=== PATIENT | female | born 1955 | race Hispanic/Latino ===

== ENCOUNTER 2018-10-01 05:52 | Day surgery (SDC) | payer OTHER ==
[2018-10-01] MEDS: NACL 0.9% 500 ML 500 ML IV SCH ×3 (07:45→13:42)
[2018-10-01] MEDS ORDERED: ECOTRIN PO ONE (08:00)
[2018-10-01] MEDS ORDERED: HEPARIN/NS 5000 UNIT/500ML(CATH LAB) 1,000 ML IR ONE (08:18)
[2018-10-01] MEDS: VERSED ONE ×3 (08:37→09:29)
[2018-10-01] MEDS: SUBLIMAZE ONE ×3 (08:37→09:29)
[2018-10-01] MEDS: XYLOCAINE 2% INFILTRATI ONE ×2 (08:37→08:59)
[2018-10-01] MEDS: HEPARIN 10,000 UNITS/10 ML ONE ×3 (08:38→09:21)
[2018-10-01] MEDS: CALAN ONE ×2 (08:38→09:01)
[2018-10-01] MEDS ORDERED: HEPARIN/NS 5000 UNIT/500ML(CATH LAB) 500 ML IR ONE (09:25)
[2018-10-01] MEDS ORDERED: HEPARIN 10,000 UNITS/10 ML ONE (10:02)
[2018-10-01] MEDS ORDERED: BRILINTA ONE (10:03)
[2018-10-01] MEDS ORDERED: ALUM-MAG HYDROX-SIMETH 200-200-20MG/5ML ONE (10:03)
[2018-10-01] MEDS ORDERED: THALITONE PO PRN ×2 (12:10→13:00)
--- NOTE | 2018-10-01 12:13 | Short Stay Summary ---
Short Stay Documentation Date of service: 10/01/18 - History H&P: obtained from office - Allergies and Medications Current Medications: Allergies No Known Allergies Allergy (Verified 10/01/18 07:39) Home Medications Medication Instructions Recorded Confirmed Last Taken Type Aspirin 325 mg PO QDAY 10/01/18 10/01/18 09/30/18 History Atorvastatin [Lipitor] 40 mg PO DAILY 10/01/18 10/01/18 09/30/18 History 40mg Carvedilol [Coreg] 25 mg PO BID 10/01/18 10/01/18 09/30/18 History 25mg Chlorthalidone [Thalitone] 25 mg PO PRN PRN 10/01/18 10/01/18 09/25/18 History 25mg Fenofibrate 160 mg PO DAILY 10/01/18 10/01/18 09/30/18 History 160mg Fluticasone [Flonase] 1 spray INTRANASAL DAILY 10/01/18 10/01/18 09/30/18 History 1 spray Loratadine [Claritin] 10 mg PO DAILY 10/01/18 10/01/18 09/30/18 History 10mg Losartan [Cozaar] 50 mg PO DAILY 10/01/18 10/01/18 09/30/18 History 50mg Metformin HCl [metFORMIN] 1,000 mg PO BID 10/01/18 10/01/18 09/30/18 History 1000mg NIFEdipine XL [Procardia Xl] 90 mg PO DAILY 10/01/18 10/01/18 09/30/18 History 90mg Omeprazole 20 mg PO DAILY 10/01/18 10/01/18 09/30/18 History 20mg hydroCHLOROthiazide [HCTZ] 12.5 mg PO DAILY 10/01/18 10/01/18 09/30/18 History 12.5mg Active Medications Aspirin (Baby Aspirin) 81 mg PO QDAY IDANIA Atorvastatin Calcium (Lipitor) 40 mg PO DAILY IDANIA Carvedilol (Coreg) 25 mg PO BID IDANIA Chlorthalidone (Thalitone) 25 mg PO PRN PRN PRN Reason: Blood Pressure Fluticasone Propionate (Flonase) mcg NS DAILY IDANIA Hydrochlorothiazide (Hctz) 12.5 mg PO DAILY IDANIA Sodium Chloride (Nacl 0.9% 500 Ml) 500 mls @ 50 mls/hr IV DIRECT IDANIA Stop: 10/01/18 17:29 Last Admin: 10/01/18 09:26 Dose: 50 mls/hr Documented by: Loratadine (Claritin) 10 mg PO DAILY IDANIA Losartan Potassium (Cozaar) 50 mg PO DAILY IDANIA Miscellaneous Medication (Fenofibrate [Fenofibrate]) 160 mg PO DAILY IDANIA Miscellaneous Medication (Metformin Hcl [Metformin]) 1,000 mg PO BID IDANIA Miscellaneous Medication (Omeprazole [Omeprazole]) 20 mg PO DAILY IDANIA Nifedipine (Procardia Xl) 90 mg PO DAILY IDANIA Ticagrelor (Brilinta) 90 mg PO BID IDANIA - Brief post op/procedure progress note Date of procedure: 10/01/18 Pre-op diagnosis: chest pain Post-op diagnosis: other (CAD) Procedure: C with PCI - see dictated cath report Anesthesia: local Estimated blood loss: none Condition: stable - Disposition Condition at discharge: Good Disposition: [id number]-01 TO HOME OR SELFCARE - Discharge Diagnoses (1) CAD (coronary artery disease) Status: Chronic (2) Stented coronary artery Status: Chronic (3) HTN (hypertension) Status: Chronic (4) Hyperlipidemia Status: Chronic (5) Diabetes Status: Chronic Short Stay Discharge Plan Activity: advance as tolerated Diet: low fat, low cholesterol, low salt, diabetic Wound: open to air, keep clean and dry, per your surgeon's advice Follow up with: HIRAL ALCALA NP-C [Primary Care Provider] - 7 Days CAMPOS CARRANZA MD [Staff Physician] - 7 Days ([facility], 10/23/2018 @ 1:30PM) Prescriptions: RX: Ticagrelor [Brilinta] 90 mg PO BID #60 tablet
[2018-10-01] MEDS ORDERED: COREG PO SCH (15:00)
--- NOTE | 2018-10-01 15:41 | Cardiac Catherization Report ---
CATHETERIZATION REPORT AND CORONARY INTERVENTIONAL REPORT INDICATION FOR PROCEDURE: The patient is a 63-year-old white female being followed in our office by Dr. Bree Martin on a regular basis, who was having atypical chest pains and elevated blood pressure. The patient recently underwent stress nuclear imaging, which showed probable lateral ischemia along with continuous symptoms of chest pain in spite of appropriate dose of beta satish, namely carvedilol 25 mg b.i.d. and also Procardia-XL 90 mg. The patient is also on aspirin and statin. She gets chest pain and shortness of breath on exertion. Hence, she is scheduled for cardiac catheterization and possible intervention. The patient and are aware of the procedure, potential complications and alternatives of therapy available. DESCRIPTION OF PROCEDURE: The patient was brought to the catheterization laboratory in a fasting condition. The patient was evaluated for moderate sedation. The patient was prepared in standard fashion with sterile drapes. The patient was sedated with IV Versed and fentanyl starting at 8:54 a.m. Subsequently, right wrist area and forearm thoroughly cleansed with Betadine solution, sterile drapes were applied. Local anesthesia was given and right radial artery puncture was made using 21-gauge arterial puncture needle. Subsequently, 5-Tunisian slender sheath was used. A 5-Tunisian multipurpose catheter was advanced into the LV under fluoroscopy and left ventriculogram was performed using hand injection. Subsequently, this catheter was exchanged with TIG catheter and angiograms of the right coronary artery were obtained. It is to be noted that there is marked tortuosity of the subclavian and innominate vessel making manipulation difficult. A JL3.5 diagnostic catheter was used to engage the left coronary artery and multiple angiograms were obtained in different views. At the end of the procedure, it was felt that patient would benefit from intervention of the distal circumflex lesion, hence procedure was converted into the interventional procedure. Diagnostic catheterization findings are as follows: Aortic pressure 157/69. 1. Left ventriculogram done in RICE projection showed normal size left ventricle with normal contractility. Ejection fraction 55%. Mitral regurgitation could not be evaluated because of limited amount of dye injected. 2. Right coronary artery dominant vessel shows very smooth 20% lesion in the proximal PDA. Otherwise, rest of the vessel which is used without significant disease. 3. Left coronary artery arises normally from left coronary cusp. Left main is short, immediately dividing into LAD and circumflex branches. LAD shows LAD which is a small caliber vessel not reaching the apex shows diffuse mild irregularities with 30% smooth proximal lesion. Overall, no obstructing lesions were noted in the LAD and diagonal branches. Circumflex artery shows 40% smooth lesion in the mid part prior to ____ anterolateral branch. Subsequently in the distal circumflex artery, there is 75% eccentric lesion. This being a very large distal marginal branch. Collaterals none. It was felt the distal circumflex artery is hemodynamically significant. FINAL IMPRESSION: 1. Normal sized left ventricle with normal contractility. 2. Dominant RCA showing only mild disease. Similarly, left main and LAD showing mild disease. Moderate 40% lesion noted in the mid circumflex; however, there is an eccentric 75% ____ circumflex lesion. PLAN: At this time is to intervene on this lesion considering the severity and symptoms and abnormal nuclear imaging. CORONARY INTERVENTION OF THE DISTAL CIRCUMFLEX VESSEL: The patient is having anginal symptoms in spite of appropriate medical therapy with appropriate dose of beta satish and calcium channel satish. Noted to have mild lateral wall ischemia. Considering the above symptoms and objective findings, it was decided to proceed with coronary intervention. The patient has indwelling 5-Tunisian sheath in the right radial artery, which can accommodate 6-Tunisian guiding catheter. Initially 6-Tunisian EBU 3.5 guiding catheter was used, but it cannot engage the LCA well, hence a 6-Tunisian JL3.5 guiding catheter was used to engage the left coronary artery. A 0.014 inch Holbrook XT guidewire was advanced into the distal circumflex artery without difficulty. Lesion in the distal circumflex which is focal was dilated with 2.75 x 12 mm balloon, which is associated with ST elevations. However, good result was obtained. Subsequently, 3.0 x 15 mm Xience Iesha stent was advanced and placed in the distal circumflex artery with very good result. No complications were noted. An attempt was made to do IVUS of the circumflex artery. However because of the technical difficulty and guidewire prolapsing into the aorta, intravascular ultrasound was not performed. Final diagnostic angiograms were obtained using diagnostic JL3.5 catheter. This showed a widely patent stent with no proximal or distal dissection. No distal embolization noted. No suggestion of perforation noted. FLORY 3 flow was noted pre and post-procedure. Lesion was reduced from 75% to 0%. The patient tolerated the procedure well without any hemodynamic changes or arrhythmia. The patient was given heparin as anticoagulant and was given Brilinta as the antiplatelet agent. FINAL IMPRESSION: Uncomplicated drug-eluting stent placement of the distal circumflex artery with very good result. No complications noted. Hemostasis will be obtained with radial band. The patient will be monitored for next 8 hours as an outpatient. If stable, may be discharged home as an outpatient. If not, he will be admitted. At the end of the procedure, the patient is stable. The patient received IV sedation and monitored throughout the procedure with a pulse oximetry, EKG monitoring and hemodynamic monitoring. Sedation monitoring ended at 9:53 a.m. The patient at the end of procedure is communicating normally, moving all the extremities, breathing normally. No untoward side effects noted. Moderate sedation. Findings were explained to the patient and her . They understand. JOB# [id number] YESSI/SONIA
[2018-10-01 16:30] VITALS: BP 143/85
[2018-10-01] MEDS ORDERED: GLUCOPHAGE PO SCH (17:00)
[2018-10-01] MEDS ORDERED: BRILINTA PO SCH (22:00)
[2018-10-02] MEDS ORDERED: NON-FORMULARY (Fenofibrate [Fenofibrate] 160 MG) PO SCH (10:00)
[2018-10-02] MEDS ORDERED: COZAAR PO SCH (10:00)
[2018-10-02] MEDS ORDERED: BABY ASPIRIN PO SCH (10:00)
[2018-10-02] MEDS ORDERED: FLONASE NS SCH (10:00)
[2018-10-02] MEDS ORDERED: PROCARDIA XL PO SCH (10:00)
[2018-10-02] MEDS ORDERED: NON-FORMULARY (Omeprazole [Omeprazole] 20 MG) PO SCH (10:00)
[2018-10-02] MEDS ORDERED: PROTONIX PO SCH (10:00)
[2018-10-02] MEDS ORDERED: CLARITIN PO SCH (10:00)
[2018-10-02] MEDS ORDERED: HCTZ PO SCH (10:00)
== END 2018-10-01 17:41 | disposition home or self-care (01) ==
LOC: CATHLABREC 05:52
PROVIDERS: ATTEND Internal Medicine
DX: I25.10 Atherosclerotic heart disease of native coronary artery without angina pectoris (principal); I10 Essential (primary) hypertension; E78.5 Hyperlipidemia, unspecified; E11.9 Type 2 diabetes mellitus without complications; K21.9 Gastro-esophageal reflux disease without esophagitis; Z79.899 Other long term (current) drug therapy; Z79.82 Long term (current) use of aspirin; Z79.84 Long term (current) use of oral hypoglycemic drugs; Z95.5 Presence of coronary angioplasty implant and graft; E78.00 Pure hypercholesterolemia, unspecified; Z90.710 Acquired absence of both cervix and uterus; Z98.890 Other specified postprocedural states
CPT/HCPCS: 82962; 85347; 93005; 93010; 93458; 99156; 99157; C1725; C1769; C1874; C1887; C1894; C9600; J1644; J2250; J3010; J7040; 92928; Q9967

== ENCOUNTER 2018-10-06 06:00 | Observation (INO) | payer OTHER ==
--- NOTE | 2018-10-06 06:43 | XRay Report ---
CHEST 1 VIEW INDICATION / CLINICAL INFORMATION: Chest Pain. COMPARISON: None available. FINDINGS: SUPPORT DEVICES: None. HEART / MEDIASTINUM: No significant abnormality. LUNGS / PLEURA: No significant pulmonary or pleural abnormality. No pneumothorax. ADDITIONAL FINDINGS: No significant additional findings. IMPRESSION: No acute pulmonary or pleural abnormality. Signer Name: Coery Elmore MD FACR Signed: 10/06/2018 6:38 AM Workstation Name: [id number]
[2018-10-06 07:15] LABS: Basophils # (Auto) 0.1 K/mm3 (0.0-0.1); Basophils % (Auto) 1.1 % (0.0-1.8); Eosinophils # (Auto) 0.1 K/mm3 (0.0-0.4); Eosinophils % (Auto) 2.1 % (0.0-4.3); Hematocrit 37.5 % (30.3-42.9); Hemoglobin 12.5 gm/dl (10.1-14.3); Lymphocytes % (Auto) 13.8 % (13.4-35.0); Mean Corpuscular HGB Conc 33 % (30-34); Mean Corpuscular Volume 82 fl (79-97); Monocytes # (Auto) 0.4 K/mm3 (0.0-0.8); Monocytes % (Auto) 5.6 % (0.0-7.3); Platelet Count 372 K/mm3 (140-440); Red Blood Count 4.58 M/mm3 (3.65-5.03); Red Cell Distribution Width 15.3 % (13.2-15.2)
[2018-10-06 07:26] LABS: BUN/Creatinine Ratio 25; Blood Urea Nitrogen 20 mg/dL (7-17); Calcium 9.7 mg/dL (8.4-10.2); Hemolysis Index 42
[2018-10-06 07:54] LABS: Chol/HDL Ratio 4.74 %; HDL Cholesterol 31 mg/dL (40-59); LDL Cholesterol,Direct 101 mg/dL (50-130)
--- NOTE | 2018-10-06 09:30 | Emergency Department Report ---
ED General Adult HPI - General Chief complaint: Dyspnea/Respdistress Stated complaint: SHORT OF BREATH Time Seen by Provider: 10/06/18 08:44 Source: patient, RN notes reviewed, old records reviewed Mode of arrival: Ambulatory Limitations: No Limitations - History of Present Illness Initial comments: Primary care DrMiguel: Cardiology: Dr Martin Past medical history: Hypertension, heart disease, high cholesterol This is a pleasant 63-year-old female. The patient is not known to this provider previously. She had a drug-eluting stent placed at this hospital 5 days ago by cardiology. She is taking aspirin and brilinta She presents to the ER today with a complaint of nontraumatic shortness of breath, new over the past 2-3 days, associated with 2-3 pillow orthopnea, which is new for her. She denies DVT, pulmonary embolus risk factors. She also has chronic left-sided chest pain which is associated with nontraumatic back pain. There is aspirin use, there is no diaphoresis, there is no vomiting, and the patient denies additional complaints. She snores at night, and endorses sensation of incomplete sleep after getting up. She is scheduled for a sleep study next month. However, she endorses an acute change in her exertional capacity within the past 2-3 days. -: days(s) Location: chest, back Radiation: non-radiation Severity scale (0 -10): 4 Quality: aching Consistency: intermittent Improves with: none Worsens with: none Associated Symptoms: chest pain, shortness of breath - Related Data Home Medications Medication Instructions Recorded Confirmed Last Taken Atorvastatin [Lipitor] 40 mg PO DAILY 10/01/18 10/06/18 09/30/18 40mg Carvedilol [Coreg] 25 mg PO BID 10/01/18 10/06/18 09/30/18 25mg Chlorthalidone [Thalitone] 25 mg PO PRN PRN 10/01/18 10/06/18 09/25/18 25mg Fenofibrate 160 mg PO DAILY 10/01/18 10/06/18 09/30/18 160mg Fluticasone [Flonase] 1 spray INTRANASAL DAILY 10/01/18 10/06/18 09/30/18 1 spray Loratadine [Claritin] 10 mg PO DAILY 10/01/18 10/06/18 09/30/18 10mg Losartan [Cozaar] 100 mg PO DAILY 10/01/18 10/06/18 09/30/18 50mg Metformin HCl [metFORMIN] 1,000 mg PO BID 10/01/18 10/06/18 09/30/18 1000mg NIFEdipine XL [Procardia Xl] 90 mg PO DAILY 10/01/18 10/06/18 09/30/18 90mg Omeprazole 20 mg PO DAILY 10/01/18 10/06/18 09/30/18 20mg hydroCHLOROthiazide [HCTZ] 12.5 mg PO DAILY 10/01/18 10/06/18 09/30/18 12.5mg Previous Rx's Medication Instructions Recorded Last Taken Type Aspirin [Aspirin BABY CHEW TAB] 81 mg PO QDAY tab.chew 10/01/18 Unknown Rx Ticagrelor [Brilinta] 90 mg PO BID #60 tablet 10/01/18 Unknown Rx Allergies Allergy/AdvReac Type Severity Reaction Status Date / Time No Known Allergies Allergy Verified 10/01/18 07:39 ED Review of Systems ROS: Stated complaint: SHORT OF BREATH Other details as noted in HPI Comment: All other systems reviewed and negative Respiratory: shortness of breath Cardiovascular: chest pain ED Past Medical Hx - Past Medical History Previous Medical History?: Yes Hx Hypertension: Yes Hx Diabetes: Yes Hx GERD: Yes - Surgical History Past Surgical History?: Yes Hx Coronary Stent: Yes (x1) Additional Surgical History: x1. hyster - Social History Smoking Status: Never Smoker Substance Use Type: None - Medications Home Medications: Home Medications Medication Instructions Recorded Confirmed Last Taken Type Aspirin [Aspirin BABY CHEW TAB] 81 mg PO QDAY tab.chew 10/01/18 10/06/18 Unknown Rx Atorvastatin [Lipitor] 40 mg PO DAILY 10/01/18 10/06/18 09/30/18 History 40mg Carvedilol [Coreg] 25 mg PO BID 10/01/18 10/06/18 09/30/18 History 25mg Chlorthalidone [Thalitone] 25 mg PO PRN PRN 10/01/18 10/06/18 09/25/18 History 25mg Fenofibrate 160 mg PO DAILY 10/01/18 10/06/18 09/30/18 History 160mg Fluticasone [Flonase] 1 spray INTRANASAL DAILY 10/01/18 10/06/18 09/30/18 History 1 spray Loratadine [Claritin] 10 mg PO DAILY 10/01/18 10/06/18 09/30/18 History 10mg Losartan [Cozaar] 100 mg PO DAILY 10/01/18 10/06/18 09/30/18 History 50mg Metformin HCl [metFORMIN] 1,000 mg PO BID 10/01/18 10/06/18 09/30/18 History 1000mg NIFEdipine XL [Procardia Xl] 90 mg PO DAILY 10/01/18 10/06/18 09/30/18 History 90mg Omeprazole 20 mg PO DAILY 10/01/18 10/06/18 09/30/18 History 20mg Ticagrelor [Brilinta] 90 mg PO BID #60 tablet 10/01/18 10/06/18 Unknown Rx hydroCHLOROthiazide [HCTZ] 12.5 mg PO DAILY 10/01/18 10/06/18 09/30/18 History 12.5mg ED Physical Exam - General Limitations: No Limitations General appearance: alert, in no apparent distress - Head Head exam: Present: atraumatic, normocephalic - Eye Eye exam: Present: normal appearance, EOMI. Absent: nystagmus - ENT ENT exam: Present: normal exam, normal orophraynx, mucous membranes moist, normal external ear exam - Neck Neck exam: Present: normal inspection, full ROM. Absent: tenderness, meningismus - Respiratory Respiratory exam: Present: normal lung sounds bilaterally. Absent: respiratory distress, chest wall tenderness - Cardiovascular Cardiovascular Exam: Present: regular rate, normal rhythm, normal heart sounds. Absent: bradycardia, tachycardia, irregular rhythm, systolic murmur, diastolic murmur, rubs, gallop - GI/Abdominal GI/Abdominal exam: Present: soft. Absent: distended, tenderness, guarding, rebound, rigid, pulsatile mass - Extremities Exam Extremities exam: Present: normal inspection, full ROM, other (2+ pulses noted in the bilateral upper, lower extremities. Compartments soft. No long bony tenderness. The pelvis is stable.). Absent: pedal edema, joint swelling, calf tenderness - Back Exam Back exam: Present: normal inspection, full ROM. Absent: tenderness, CVA tenderness (R), CVA tenderness (L), paraspinal tenderness, vertebral tenderness - Neurological Exam Neurological exam: Present: alert, oriented X3, other (Extraocular movements intact. Tongue midline. No facial droop. Facial sensation intact to light touch in the V1, V2, V3 distribution bilaterally. 5 and 5 strength in 4 extremities.. Sensation is intact to light touch in 4 extremities.). Absent: motor sensory deficit - Psychiatric Psychiatric exam: Present: normal affect, normal mood - Skin Skin exam: Present: warm, dry, intact, normal color. Absent: rash ED Course Vital Signs 10/06/18 10/06/18 10/06/18 06:05 06:40 06:45 Temperature 97.9 F Pulse Rate 74 71 Respiratory 16 19 Rate Blood Pressure 128/73 123/72 O2 Sat by Pulse 98 97 96 Oximetry 10/06/18 10/06/18 10/06/18 07:00 07:04 07:16 Temperature Pulse Rate 72 70 Respiratory 19 18 20 Rate Blood Pressure 130/69 130/69 O2 Sat by Pulse 96 97 98 Oximetry 10/06/18 10/06/18 10/06/18 07:30 07:46 08:00 Temperature Pulse Rate 71 70 70 Respiratory 18 18 20 Rate Blood Pressure 123/71 123/71 120/73 O2 Sat by Pulse 99 98 98 Oximetry 10/06/18 10/06/18 10/06/18 08:54 09:00 10:00 Temperature Pulse Rate 70 73 Respiratory 20 21 17 Rate Blood Pressure 111/68 125/70 O2 Sat by Pulse 99 97 97 Oximetry 10/06/18 11:00 Temperature Pulse Rate 74 Respiratory 17 Rate Blood Pressure 146/82 O2 Sat by Pulse 99 Oximetry ED Medical Decision Making - Lab Data Result diagrams: 10/06/18 07:00 10/06/18 07:00 Vital Signs 10/06/18 10/06/18 10/06/18 06:05 06:40 06:45 Temperature 97.9 F Pulse Rate 74 71 Respiratory 16 19 Rate Blood Pressure 128/73 123/72 O2 Sat by Pulse 98 97 96 Oximetry 10/06/18 10/06/18 10/06/18 07:00 07:04 07:16 Temperature Pulse Rate 72 70 Respiratory 19 18 20 Rate Blood Pressure 130/69 130/69 O2 Sat by Pulse 96 97 98 Oximetry 10/06/18 10/06/18 10/06/18 07:30 07:46 08:00 Temperature Pulse Rate 71 70 70 Respiratory 18 18 20 Rate Blood Pressure 123/71 123/71 120/73 O2 Sat by Pulse 99 98 98 Oximetry 10/06/18 08:54 Temperature Pulse Rate Respiratory 20 Rate Blood Pressure O2 Sat by Pulse 99 Oximetry Lab Results 10/06/18 10/06/18 10/06/18 Range/Units 07:00 07:00 07:00 WBC 7.0 (4.5-11.0) K/mm3 RBC 4.58 (3.65-5.03) M/mm3 Hgb 12.5 (10.1-14.3) gm/dl Hct 37.5 (30.3-42.9) % MCV 82 (79-97) fl MCH 27 L (28-32) pg MCHC 33 (30-34) % RDW 15.3 H (13.2-15.2) % Plt Count 372 (140-440) K/mm3 Lymph % (Auto) 13.8 (13.4-35.0) % [place] % (Auto) 5.6 (0.0-7.3) % Eos % (Auto) 2.1 (0.0-4.3) % Baso % (Auto) 1.1 (0.0-1.8) % Lymph # 1.0 L (1.2-5.4) K/mm3 [place] # 0.4 (0.0-0.8) K/mm3 Eos # 0.1 (0.0-0.4) K/mm3 Baso # 0.1 (0.0-0.1) K/mm3 Seg Neutrophils % 77.4 H (40.0-70.0) % Seg Neutrophils # 5.4 (1.8-7.7) K/mm3 D-Dimer 192.57 (0-234) ng/mlDDU Sodium 132 L (137-145) mmol/L Potassium 4.6 (3.6-5.0) mmol/L Chloride 98.5 (98-107) mmol/L Carbon Dioxide 20 L (22-30) mmol/L Anion Gap 18 mmol/L BUN 20 H (7-17) mg/dL Creatinine 0.8 (0.7-1.2) mg/dL Estimated GFR > 60 ml/min BUN/Creatinine Ratio 25 % Glucose 303 H (65-100) mg/dL Calcium 9.7 (8.4-10.2) mg/dL Troponin T 0.051 H (0.00-0.029) ng/mL Triglycerides 203 H (2-149) mg/dL Cholesterol 147 (50-199) mg/dL LDL Cholesterol Direct 101 (50-130) mg/dL HDL Cholesterol 31 L (40-59) mg/dL Cholesterol/HDL Ratio 4.74 % - EKG Data -: EKG Interpreted by Me Rate: normal - Radiology Data Radiology results: report reviewed, image reviewed Print Report Referring Physician: VIRIDIANA NORMAN Patient Name: RAMON TEAGUE Date of : 1955 Sex: Female Report Date: 2018-10-06 Report Status: Finalized Findings [facility] [address] [place] [address] XRay Report Signed Patient: RAMON TEAGUE MR#: [id number] : 1955 Acct:[id number] Age/Sex: 63 / F ADM Date: 10/06/18 Loc: ED Attending Dr: Ordering Physician: VIRIDIANA NORMAN MD Date of Service: 10/06/18 Procedure(s): XR chest 1V ap Accession Number(s): [id number] cc: VIRIDIANA NORMAN MD Fluoro Time In Minutes: CHEST 1 VIEW INDICATION / CLINICAL INFORMATION: Chest Pain. COMPARISON: None available. FINDINGS: SUPPORT DEVICES: None. HEART / MEDIASTINUM: No significant abnormality. LUNGS / PLEURA: No significant pulmonary or pleural abnormality. No pneumothorax. ADDITIONAL FINDINGS: No significant additional findings. IMPRESSION: No acute pulmonary or pleural abnormality. Signer Name: Corey Elmore MD FACR Signed: 10/06/2018 6:38 AM Workstation Name: [id number] Transcribed By: MS Dictated By: Corey Elmore MD Electronically Authenticated By: Corey Elmore MD Signed Date/Time: 10/06/18 0638 - Medical Decision Making Differential diagnosis, including not limited to: Chronic stable angina, pneumonia, pulmonary embolism, troponin leak secondary to recent cardiac catheterization, coronary artery dissection, medication side effect Assessment and plan: 63 year-old female with new onset worsening shortness of breath, not tachycardic, not hypoxic, low risk by well's criteria, negative d- dimer, normal chest x-ray, mild low-grade troponin leak, likely secondary to cardiac catheterization. patient taking Brilinita, endorses compliance with this medication and her aspirin, and may be experiencing known expected side effects of this medication. However, we will admit the patient to the medical service for observation and expedited cardiology consultation. Discussed with cardiology nurse practitioner on-call, Reno Alvarez, who advises that Brilinta is most likely causing shortness of breath, and that her group will follow in consultation. The hospital team will admit the patient to the medical service, Dr. Wyatt to admit Critical care attestation.: If time is entered above; I have spent that time in minutes in the direct care of this critically ill patient, excluding procedure time. ED Disposition Clinical Impression: CAD (coronary artery disease), HTN (hypertension), Chest pain, Dyspnea Disposition: OP ADMIT IP TO THIS HOSP Is pt being admited?: Yes Condition: Stable
[2018-10-06] MEDS ORDERED: THALITONE PO PRN (09:40)
[2018-10-06] MEDS ORDERED: NITROSTAT SL PRN (09:42)
[2018-10-06] MEDS ORDERED: PEPCID IV ONE (09:42)
[2018-10-06] MEDS: BABY ASPIRIN PO SCH (09:49)
[2018-10-06] MEDS ORDERED: BABY ASPIRIN ONE (09:49)
[2018-10-06] MEDS ORDERED: FLONASE NS SCH (10:00)
[2018-10-06] MEDS ORDERED: NON-FORMULARY (Omeprazole [Omeprazole] 20 MG) PO SCH (10:00)
[2018-10-06] MEDS ORDERED: BRILINTA PO SCH (10:00)
[2018-10-06] MEDS ORDERED: NON-FORMULARY (Fenofibrate [Fenofibrate] 160 MG) PO SCH (10:00)
[2018-10-06] MEDS ORDERED: SODIUM CHLORIDE FLUSH SYRINGE 10 ML IV PRN (10:25)
[2018-10-06] MEDS ORDERED: TYLENOL PO PRN (10:25)
[2018-10-06] MEDS ORDERED: PERCOCET 5/325 PO PRN (10:25)
[2018-10-06] MEDS ORDERED: ZOFRAN IV PRN (10:25)
[2018-10-06] MEDS ORDERED: MORPHINE IV PRN (10:25)
[2018-10-06] MEDS: HCTZ PO SCH (10:32)
[2018-10-06] MEDS: PROCARDIA XL PO SCH (10:32)
[2018-10-06] MEDS: PROTONIX PO SCH (12:11)
--- NOTE | 2018-10-06 12:50 | Consultation ---
History of Present Illness Consult date: 10/06/18 Requesting physician: MARCK BLACKBURN History of present illness: The pt is a 63 YO female with a past medical history of CAD s/p recent PCI of l eft circ at [facility] by Dr. Reddy on 10/01/2018, HTN, HLP, DM. She is followed in our office by Dr. Martin. She presented with c/o progressively worsening SOB which began the day after her PCI. Prior to PCI, she was experiencing atypical chest pain and SOB and was noted to have an abnormal stress test and thus was scheduled for OP LHC. She states that the dyspnea she is now experiencing is different than the dyspnea she was experiencing prior to LHC with PCI. She denies any chest pain, palpitations, n/v, diaphoresis, dizziness or syncope. Of note, pt was initiated on Brilinta after PCI. She has never taken this medication before. She also has suspected INO and is pending OP sleep study. Echo done 09/18/2018 showed mild LVH with dysproportional septal hypertrophy, EF 55-60%. Past History Past Medical History: CAD, diabetes, hypertension, hyperlipidemia Past Surgical History: PTCA Social history: , lives with family Medications and Allergies Allergies Allergy/AdvReac Type Severity Reaction Status Date / Time No Known Allergies Allergy Verified 10/01/18 07:39 Home Medications Medication Instructions Recorded Confirmed Last Taken Type Aspirin [Aspirin BABY CHEW TAB] 81 mg PO QDAY tab.chew 10/01/18 10/06/18 Unknown Rx Atorvastatin [Lipitor] 40 mg PO DAILY 10/01/18 10/06/18 09/30/18 History 40mg Carvedilol [Coreg] 25 mg PO BID 10/01/18 10/06/18 09/30/18 History 25mg Chlorthalidone [Thalitone] 25 mg PO PRN PRN 10/01/18 10/06/18 09/25/18 History 25mg Fenofibrate 160 mg PO DAILY 10/01/18 10/06/18 09/30/18 History 160mg Fluticasone [Flonase] 1 spray INTRANASAL DAILY 10/01/18 10/06/18 09/30/18 History 1 spray Loratadine [Claritin] 10 mg PO DAILY 10/01/18 10/06/18 09/30/18 History 10mg Losartan [Cozaar] 100 mg PO DAILY 10/01/18 10/06/18 09/30/18 History 50mg Metformin HCl [metFORMIN] 1,000 mg PO BID 10/01/18 10/06/18 09/30/18 History 1000mg NIFEdipine XL [Procardia Xl] 90 mg PO DAILY 10/01/18 10/06/18 09/30/18 History 90mg Omeprazole 20 mg PO DAILY 10/01/18 10/06/18 09/30/18 History 20mg Ticagrelor [Brilinta] 90 mg PO BID #60 tablet 10/01/18 10/06/18 Unknown Rx hydroCHLOROthiazide [HCTZ] 12.5 mg PO DAILY 10/01/18 10/06/18 09/30/18 History 12.5mg Active Meds: Active Medications Acetaminophen (Tylenol) 650 mg PO Q4H PRN PRN Reason: Pain MILD(1-3)/Fever >100.5/CHAVES Aspirin (Baby Aspirin) 81 mg PO QDAY [facility] Last Admin: 10/06/18 09:49 Dose: 81 mg Documented by: Atorvastatin Calcium (Lipitor) 40 mg PO DAILY [facility] Last Admin: 10/06/18 10:24 Dose: 40 mg Documented by: Carvedilol (Coreg) 25 mg PO BID [facility] Chlorthalidone (Thalitone) 25 mg PO PRN PRN PRN Reason: Blood Pressure Fenofibrate (Tricor) 145 mg PO DAILY [facility] Fluticasone Propionate (Flonase) 50 mcg NS DAILY [facility] Last Admin: 10/06/18 10:32 Dose: Not Given Documented by: Hydrochlorothiazide (Hctz) 12.5 mg PO DAILY [facility] Last Admin: 10/06/18 10:32 Dose: Not Given Documented by: Sodium Chloride (Nacl 0.9% 1000 Ml) 1,000 mls @ 100 mls/hr IV DIRECT [facility] Loratadine (Claritin) 10 mg PO DAILY [facility] Losartan Potassium (Cozaar) 100 mg PO DAILY [facility] Morphine Sulfate (Morphine) 2 mg IV Q4H PRN PRN Reason: Pain , Severe (7-10) Nifedipine (Procardia Xl) 90 mg PO DAILY [facility] Last Admin: 10/06/18 10:32 Dose: 90 mg Documented by: Nitroglycerin (Nitrostat) 0.4 mg SL .Q5MIN PRN PRN Reason: Chest Pain Ondansetron HCl (Zofran) 4 mg IV Q8H PRN PRN Reason: Nausea And Vomiting Oxycodone/Acetaminophen (Percocet 5/325) 1 tab PO Q6H PRN PRN Reason: Pain, Moderate (4-6) Pantoprazole Sodium (Protonix) 20 mg PO QDAY [facility] Last Admin: 10/06/18 12:11 Dose: 20 mg Documented by: Prasugrel (Effient) 10 mg PO QDAY [facility] Sodium Chloride (Sodium Chloride Flush Syringe 10 Ml) 10 ml IV BID [facility] Sodium Chloride (Sodium Chloride Flush Syringe 10 Ml) 10 ml IV PRN PRN PRN Reason: LINE FLUSH Review of Systems Constitutional: no weight loss, no weight gain, no fever, no chills, no sweats Ears, nose, mouth and throat: no ear pain, no nose pain, no sinus pressure, no sinus pain Cardiovascular: shortness of breath, dyspnea on exertion, no chest pain, no orthopnea, no palpitations, no rapid/irregular heart beat, no edema, no syncope, no lightheadedness, no high blood pressure, no leg edema Respiratory: shortness of breath, dyspnea on exertion, no cough, no congestion, no wheezing, no pain on inspiration Gastrointestinal: no abdominal pain, no nausea, no vomiting, no diarrhea, no constipation, no change in bowel habits Genitourinary Female: no pelvic pain, no flank pain, no dysuria, no urinary frequency, no urgency Musculoskeletal: no neck stiffness, no neck pain, no shooting arm pain, no arm numbness/tingling, no low back pain, no shooting leg pain Integumentary: no rash, no pruritis, no redness, no sores, no wounds Neurological: no head injury, no paralysis, no weakness, no parathesias, no numbness, no tingling, no seizures, no syncope Psychiatric: no anxiety Endocrine: no cold intolerance, no heat intolerance Hematologic/Lymphatic: no easy bruising, no easy bleeding Allergic/Immunologic: no urticaria, no wheezing Physical Examination Vital Signs Temp Pulse Resp BP Pulse Ox 97.9 F 74 16 128/73 98 10/06/18 06:05 10/06/18 06:05 10/06/18 06:05 10/06/18 06:05 10/06/18 06:05 General appearance: no acute distress HEENT: Positive: PERRL, Normocephaly, Mucus Membranes Moist Neck: Positive: neck supple, trachea midline Cardiac: Positive: Reg Rate and Rhythm, S1/S2 Lungs: Positive: clear to auscultation Neuro: Positive: Grossly Intact Abdomen: Positive: Soft. Negative: Tender Skin: Negative: Rash Musculoskeletal: No Pain Extremities: Absent: edema Results 10/06/18 07:00 10/06/18 07:00 Lipids 10/06/18 Range/Units 07:00 Triglycerides 203 H (2-149) mg/dL Cholesterol 147 (50-199) mg/dL HDL Cholesterol 31 L (40-59) mg/dL Cholesterol/HDL Ratio 4.74 % CBC 10/06/18 Range/Units 07:00 WBC 7.0 (4.5-11.0) K/mm3 RBC 4.58 (3.65-5.03) M/mm3 Hgb 12.5 (10.1-14.3) gm/dl Hct 37.5 (30.3-42.9) % Plt Count 372 (140-440) K/mm3 Lymph # 1.0 L (1.2-5.4) K/mm3 [place] # 0.4 (0.0-0.8) K/mm3 Eos # 0.1 (0.0-0.4) K/mm3 Baso # 0.1 (0.0-0.1) K/mm3 Comprehensive Metabolic Panel 10/06/18 Range/Units 07:00 Sodium 132 L (137-145) mmol/L Potassium 4.6 (3.6-5.0) mmol/L Chloride 98.5 (98-107) mmol/L Carbon Dioxide 20 L (22-30) mmol/L BUN 20 H (7-17) mg/dL Creatinine 0.8 (0.7-1.2) mg/dL Glucose 303 H (65-100) mg/dL Calcium 9.7 (8.4-10.2) mg/dL - Imaging and Cardiology Echo: report reviewed ( 09/18/2018 showed mild LVH with dysproportional septal hypertrophy, EF 55-60%. ) EKG: report reviewed, image reviewed EKG interpretations - Telemetry EKG Rhythm: Sinus Rhythm - EKG Sinus rhythms and dysrhythmias: sinus rhythm Assessment and Plan Pt is s/p recent PCI of left circ at [facility] by Dr. Reddy on 10/01/2018. She was initiated on Brilinta at that time. She presented with c/o dyspnea, she denies any chest pain, ECG with no acute ischemic changes and Darwin negative for AMI x 3 sets, CXR with NAF. Echo done 09/18/2018 showed mild LVH with dysproportional septal hypertrophy, EF 55-60%. Suspect pt's dyspnea is secondary to initiation of Brilinta as this is a known side effect of this medication. Will convert brilinta to Effient. Pt will be admitted to telemetry per hospitalists. Cont to trend Darwin and repeat ECG in AM. Monitor overnight with likely d/c home in AM. The patient has been seen in conjunction with Dr. Jorge Blackwood who agrees with the assessment and plan of care. - Patient Problems (1) Dyspnea Current Visit: Yes Status: Acute (2) CAD (coronary artery disease) Current Visit: Yes Status: Chronic (3) Stented coronary artery Current Visit: Yes Status: Chronic (4) HTN (hypertension) Current Visit: Yes Status: Chronic (5) Diabetes Current Visit: Yes Status: Chronic (6) Hyperlipidemia Current Visit: Yes Status: Chronic (7) Sleep apnea Current Visit: Yes Status: Suspected
[2018-10-06] MEDS ORDERED: EFFIENT PO ONE (13:16)
[2018-10-06] MEDS ORDERED: D50W (25GM) Syringe IV PRN (13:35)
[2018-10-06] MEDS: COREG PO SCH ×2 (14:15→22:09)
[2018-10-06] MEDS: CLARITIN PO SCH (14:15)
[2018-10-06] MEDS: TRICOR PO SCH (14:15)
[2018-10-06] MEDS: COZAAR PO SCH (14:16)
[2018-10-06] MEDS: NACL 0.9% 1000 ML 1,000 ML IV SCH ×2 (14:18→23:39)
--- NOTE | 2018-10-06 15:27 | History and Physical Report ---
History of Present Illness Date of examination: 10/06/18 Date of admission: 10/06/18 09:58 Chief complaint: Shortness of breath History of present illness: The pt is a 63 YO female with past medical history of CAD s/p recent PCI to left circ at [facility] by Dr. Reddy on 10/01/2018, HTN, HLD and DM2 presented to the ED on account of 2 days history shortness of breath at rest. Patient reports the shortness of breath when she is about to fall asleep. She has associated left- sided chest pain. She denies palpitation, diaphoresis, cough, fever, chills, leg swelling, orthopnea or PND. No headaches, nausea, vomiting, lightheadedness, syncope or loss of consciousness. Past History Past Medical History: CAD, diabetes, hypertension, hyperlipidemia Past Surgical History: hysterectomy, PTCA Social history: , lives with family, other (she denies tobacco, alcohol or illicit drug use) Family history: hypertension (mother), other (Father from brain aneurysm at 65 years old) Medications and Allergies Allergies Allergy/AdvReac Type Severity Reaction Status Date / Time No Known Allergies Allergy Verified 10/01/18 07:39 Home Medications Medication Instructions Recorded Confirmed Last Taken Type Aspirin [Aspirin BABY CHEW TAB] 81 mg PO QDAY tab.chew 10/01/18 10/06/18 Unknown Rx Atorvastatin [Lipitor] 40 mg PO DAILY 10/01/18 10/06/18 09/30/18 History 40mg Carvedilol [Coreg] 25 mg PO BID 10/01/18 10/06/18 09/30/18 History 25mg Chlorthalidone [Thalitone] 25 mg PO PRN PRN 10/01/18 10/06/18 09/25/18 History 25mg Fenofibrate 160 mg PO DAILY 10/01/18 10/06/18 09/30/18 History 160mg Fluticasone [Flonase] 1 spray INTRANASAL DAILY 10/01/18 10/06/18 09/30/18 History 1 spray Loratadine [Claritin] 10 mg PO DAILY 10/01/18 10/06/18 09/30/18 History 10mg Losartan [Cozaar] 100 mg PO DAILY 10/01/18 10/06/18 09/30/18 History 50mg Metformin HCl [metFORMIN] 1,000 mg PO BID 10/01/18 10/06/18 09/30/18 History 1000mg NIFEdipine XL [Procardia Xl] 90 mg PO DAILY 10/01/18 10/06/18 09/30/18 History 90mg Omeprazole 20 mg PO DAILY 10/01/18 10/06/18 09/30/18 History 20mg Ticagrelor [Brilinta] 90 mg PO BID #60 tablet 10/01/18 10/06/18 Unknown Rx hydroCHLOROthiazide [HCTZ] 12.5 mg PO DAILY 10/01/18 10/06/18 09/30/18 History 12.5mg Active Meds: Active Medications Acetaminophen (Tylenol) 650 mg PO Q4H PRN PRN Reason: Pain MILD(1-3)/Fever >100.5/CHAVES Aspirin (Baby Aspirin) 81 mg PO QDAY [facility] Last Admin: 10/06/18 09:49 Dose: 81 mg Documented by: Atorvastatin Calcium (Lipitor) 40 mg PO DAILY [facility] Last Admin: 10/06/18 10:24 Dose: 40 mg Documented by: Carvedilol (Coreg) 25 mg PO BID [facility] Last Admin: 10/06/18 14:15 Dose: 25 mg Documented by: Chlorthalidone (Thalitone) 25 mg PO PRN PRN PRN Reason: Blood Pressure Dextrose (D50w (25gm) Syringe) 50 ml IV PRN PRN PRN Reason: Hypoglycemia Fenofibrate (Tricor) 145 mg PO DAILY [facility] Last Admin: 10/06/18 14:15 Dose: 145 mg Documented by: Fluticasone Propionate (Flonase) 50 mcg NS DAILY [facility] Last Admin: 10/06/18 10:32 Dose: Not Given Documented by: Hydrochlorothiazide (Hctz) 12.5 mg PO DAILY [facility] Last Admin: 10/06/18 10:32 Dose: Not Given Documented by: Sodium Chloride (Nacl 0.9% 1000 Ml) 1,000 mls @ 100 mls/hr IV DIRECT [facility] Last Admin: 10/06/18 14:18 Dose: 100 mls/hr Documented by: Insulin Glargine (Lantus) 15 units SUB-Q QHS [facility] Insulin Human Lispro (Humalog) 0 unit SUB-Q ACHS [facility]; Protocol Loratadine (Claritin) 10 mg PO DAILY [facility] Last Admin: 10/06/18 14:15 Dose: 10 mg Documented by: Losartan Potassium (Cozaar) 100 mg PO DAILY [facility] Last Admin: 10/06/18 14:16 Dose: 100 mg Documented by: Morphine Sulfate (Morphine) 2 mg IV Q4H PRN PRN Reason: Pain , Severe (7-10) Nifedipine (Procardia Xl) 90 mg PO DAILY [facility] Last Admin: 10/06/18 10:32 Dose: 90 mg Documented by: Nitroglycerin (Nitrostat) 0.4 mg SL .Q5MIN PRN PRN Reason: Chest Pain Ondansetron HCl (Zofran) 4 mg IV Q8H PRN PRN Reason: Nausea And Vomiting Oxycodone/Acetaminophen (Percocet 5/325) 1 tab PO Q6H PRN PRN Reason: Pain, Moderate (4-6) Pantoprazole Sodium (Protonix) 20 mg PO QDAY [facility] Last Admin: 10/06/18 12:11 Dose: 20 mg Documented by: Prasugrel (Effient) 10 mg PO QDAY [facility] Sodium Chloride (Sodium Chloride Flush Syringe 10 Ml) 10 ml IV BID [facility] Sodium Chloride (Sodium Chloride Flush Syringe 10 Ml) 10 ml IV PRN PRN PRN Reason: LINE FLUSH Review of Systems All systems: negative (except as documented in the HPI, 14 point system reviewed were negative) Exam - Constitutional Vitals: Temp Pulse Resp BP Pulse Ox 97.9 F 78 17 148/81 99 10/06/18 06:05 10/06/18 14:16 10/06/18 11:00 10/06/18 14:16 10/06/18 11:00 General appearance: Present: no acute distress, well-nourished - EENT Eyes: Present: PERRL, EOM intact ENT: hearing intact, clear oral mucosa - Neck Neck: Present: supple, normal ROM - Respiratory Respiratory effort: normal Respiratory: bilateral: CTA - Cardiovascular Rhythm: regular Heart Sounds: Present: S1 & S2. Absent: rub, click - Extremities Extremities: pulses symmetrical, No edema Peripheral Pulses: within normal limits - Abdominal General gastrointestinal: Present: soft, non-tender, non-distended, normal bowel sounds Female genitourinary: Present: deferred - Integumentary Integumentary: Present: clear, warm, dry - Musculoskeletal Musculoskeletal: gait normal, strength equal bilaterally - Psychiatric Psychiatric: appropriate mood/affect, intact judgment & insight - Neurologic Neurologic: CNII-XII intact, moves all extremities Results - Labs CBC & Chem 7: 10/06/18 07:00 10/06/18 07:00 Labs: Laboratory Last Values WBC 7.0 K/mm3 (4.5-11.0) 10/06/18 07:00 RBC 4.58 M/mm3 (3.65-5.03) 10/06/18 07:00 Hgb 12.5 gm/dl (10.1-14.3) 10/06/18 07:00 Hct 37.5 % (30.3-42.9) 10/06/18 07:00 MCV 82 fl (79-97) 10/06/18 07:00 MCH 27 pg (28-32) L 10/06/18 07:00 MCHC 33 % (30-34) 10/06/18 07:00 RDW 15.3 % (13.2-15.2) H 10/06/18 07:00 Plt Count 372 K/mm3 (140-440) 10/06/18 07:00 Lymph % (Auto) 13.8 % (13.4-35.0) 10/06/18 07:00 [place] % (Auto) 5.6 % (0.0-7.3) 10/06/18 07:00 Eos % (Auto) 2.1 % (0.0-4.3) 10/06/18 07:00 Baso % (Auto) 1.1 % (0.0-1.8) 10/06/18 07:00 Lymph # 1.0 K/mm3 (1.2-5.4) L 10/06/18 07:00 [place] # 0.4 K/mm3 (0.0-0.8) 10/06/18 07:00 Eos # 0.1 K/mm3 (0.0-0.4) 10/06/18 07:00 Baso # 0.1 K/mm3 (0.0-0.1) 10/06/18 07:00 Seg Neutrophils % 77.4 % (40.0-70.0) H 10/06/18 07:00 Seg Neutrophils # 5.4 K/mm3 (1.8-7.7) 10/06/18 07:00 192.57 ng/mlDDU (0-234) 10/06/18 07:00 Sodium 132 mmol/L (137-145) L 10/06/18 07:00 Potassium 4.6 mmol/L (3.6-5.0) 10/06/18 07:00 Chloride 98.5 mmol/L (98-107) 10/06/18 07:00 Carbon Dioxide 20 mmol/L (22-30) L 10/06/18 07:00 18 mmol/L 10/06/18 07:00 BUN 20 mg/dL (7-17) H 10/06/18 07:00 0.8 mg/dL (0.7-1.2) 10/06/18 07:00 Estimated GFR > 60 ml/min 10/06/18 07:00 25 % 10/06/18 07:00 Glucose 303 mg/dL (65-100) H 10/06/18 07:00 Calcium 9.7 mg/dL (8.4-10.2) 10/06/18 07:00 0.029 ng/mL (0.00-0.029) 10/06/18 12:08 Triglycerides 203 mg/dL (2-149) H 10/06/18 07:00 Cholesterol 147 mg/dL (50-199) 10/06/18 07:00 101 mg/dL (50-130) 10/06/18 07:00 31 mg/dL (40-59) L 10/06/18 07:00 4.74 % 10/06/18 07:00 Assessment and Plan Assessment and plan: Dyspnea at rest with left-sided chest pain -D-dimer negative -Chest x-ray negative -We'll monitor Non-NV elevated troponin -Probably due to demand ischemia -Levels trended down CAD with recent PCI -Continue medical management -Cardiology following NIDDM2 with hyperglycemia -On SSI and Lantus -Patient reported that her last hba1c level was less than 8 Acute metabolic acidosis -On IV fluid, will monitor level Hypertension -Stable, continue home antihypertensives Hyperlipidemia -Continue statin DVT prophylaxis with SCD Disposition: Patient admitted in observation status with plan for discharge tomorrow if medically stable Time spent: 38 minutes
[2018-10-06] MEDS: HumaLOG SUB-Q SCH ×2 (17:23→22:10)
[2018-10-06] MEDS ORDERED: LANTUS SUB-Q SCH (22:00)
[2018-10-06] MEDS: SODIUM CHLORIDE FLUSH SYRINGE 10 ML IV SCH (22:11)
[2018-10-07 08:20] LABS: BUN/Creatinine Ratio 19; Blood Urea Nitrogen 15 mg/dL (7-17); Calcium 9.1 mg/dL (8.4-10.2); Hemolysis Index 3
[2018-10-07] MEDS: COREG PO SCH (09:11)
[2018-10-07] MEDS: PROCARDIA XL PO SCH (09:11)
[2018-10-07] MEDS: CLARITIN PO SCH (09:11)
[2018-10-07] MEDS: TRICOR PO SCH (09:12)
[2018-10-07] MEDS: PROTONIX PO SCH (09:12)
[2018-10-07] MEDS: BABY ASPIRIN PO SCH (09:12)
[2018-10-07] MEDS: COZAAR PO SCH (09:12)
[2018-10-07] MEDS: HumaLOG SUB-Q SCH (09:12)
[2018-10-07] MEDS: SODIUM CHLORIDE FLUSH SYRINGE 10 ML IV SCH (09:13)
[2018-10-07] MEDS: HCTZ PO SCH (09:16)
[2018-10-07] MEDS ORDERED: EFFIENT PO SCH (10:00)
--- NOTE | 2018-10-07 10:29 | Progress Note ---
Assessment and Plan Currently stable cardiac status. Pt states she is feeling much better today, dyspnea nearly resolved since conversion of Brilinta to Effient. Pt may discharge home from cardiology standpoint. At discharge, cont DAPT with ASA 81 and Effient, cont all other home cardiac medications. Follow up in our [place] office with Dr. Martin on 10/23/2018 @ 1:30PM. The patient has been seen in conjunction with Dr. Jorge Blackwood who agrees with the assessment and plan of care. - Patient Problems (1) Dyspnea Current Visit: Yes Status: Acute (2) CAD (coronary artery disease) Current Visit: Yes Status: Chronic (3) Stented coronary artery Current Visit: Yes Status: Chronic (4) HTN (hypertension) Current Visit: Yes Status: Chronic (5) Diabetes Current Visit: Yes Status: Chronic (6) Hyperlipidemia Current Visit: Yes Status: Chronic (7) Sleep apnea Current Visit: Yes Status: Suspected Subjective Date of service: 10/07/18 Principal diagnosis: dyspnea Interval history: pt resting in bed, states she is feeling much better today, dyspnea nearly resolved since d/c of brilinta. at bedside. Objective Last Vital Signs Temp 99.3 F 10/07/18 08:42 Pulse 85 10/07/18 08:42 Resp 18 10/07/18 08:42 BP 144/83 10/07/18 08:42 Pulse Ox 97 10/07/18 08:42 - Physical Examination General: No Apparent Distress HEENT: Positive: PERRL, Normocephaly, Mucus Membranes Moist Neck: Positive: neck supple, trachea midline Cardiac: Positive: Reg Rate and Rhythm, S1/S2 Lungs: Positive: clear to auscultation Neuro: Positive: Grossly Intact Abdomen: Positive: Soft. Negative: Tender Skin: Negative: Rash Musculoskeletal: No Pain Extremities: Absent: edema - Labs and Meds Comprehensive Metabolic Panel 10/07/18 Range/Units 07:17 Sodium 141 D (137-145) mmol/L Potassium 4.6 (3.6-5.0) mmol/L Chloride 106.6 (98-107) mmol/L Carbon Dioxide 23 (22-30) mmol/L BUN 15 (7-17) mg/dL Creatinine 0.8 (0.7-1.2) mg/dL Glucose 224 H (65-100) mg/dL Calcium 9.1 (8.4-10.2) mg/dL - Imaging and Cardiology EKG: report reviewed, image reviewed Echo: report reviewed ( 09/18/2018 showed mild LVH with dysproportional septal hypertrophy, EF 55-60%. ) - Telemetry EKG Rhythm: Sinus Rhythm - EKG Sinus rhythms and dysrhythmias: sinus rhythm
[2018-10-07] MEDS ORDERED: LANTUS SUB-Q ONE (11:00)
[2018-10-07 11:48] VITALS: BP 124/72
--- NOTE | 2018-10-07 15:55 | Discharge Summary ---
Providers - Providers Date of Admission: 10/06/18 09:58 Date of discharge: 10/07/18 Attending physician: GERALDO MCGEE 10/06/18 09:42 Consult to Physician [CONS] Urgent Comment: Consulting Provider: RALPH LYNCH Physician Instructions: Reason For Exam: cp sob stent Primary care physician: HIRAL ALCALA [employer]-C Hospitalization Reason for admission: Dyspnea at rest with left-sided chest pain Condition: Stable Pertinent studies: Chest x-ray: Negative Hospital course: Final discharge diagnosis: Dyspnea at rest with left-sided chest pain, exact cause unknown Non-MA elevated troponin, probably due to demand ischemia CAD with recent PCI NIDDM2 with hyperglycemia Acute metabolic acidosis Hypertension Hyperlipidemia Hospital course: Patient was admitted and placed on chest pain pathway. Initial troponin level was mildly elevated but trended down with serial monitoring. In addition, she was placed on both basal and prandial insulin regimen as well as IV fluid. He was monitored overnight without any adverse events and was then deemed stable for discharge with clinic follow-up after clearance by the cardiology. On discharge, her home brilinta was changed to effient as recommended by the cardiology. Disposition: DC-01 TO HOME OR SELFCARE Time spent for discharge: 35 minutes Core Measure Documentation - Palliative Care Palliative Care/ Comfort Measures: Not Applicable - Core Measures Any of the following diagnoses?: none Exam - Constitutional Vitals: Temp Pulse Resp BP Pulse Ox 98.6 F 78 18 124/72 94 10/07/18 11:45 10/07/18 11:45 10/07/18 11:45 10/07/18 11:45 10/07/18 11:45 General appearance: Present: no acute distress, well-nourished - EENT Eyes: Present: PERRL, EOM intact ENT: hearing intact, clear oral mucosa - Neck Neck: Present: supple, normal ROM - Respiratory Respiratory effort: normal Respiratory: bilateral: CTA - Cardiovascular Rhythm: regular Heart Sounds: Present: S1 & S2. Absent: rub, click - Extremities Extremities: pulses symmetrical, No edema Peripheral Pulses: within normal limits - Abdominal General gastrointestinal: Present: soft, non-tender, non-distended, normal bowel sounds Female genitourinary: Present: deferred - Integumentary Integumentary: Present: clear, warm, dry - Musculoskeletal Musculoskeletal: gait normal, strength equal bilaterally - Psychiatric Psychiatric: appropriate mood/affect, intact judgment & insight - Neurologic Neurologic: CNII-XII intact, moves all extremities Plan Follow up with: HIRAL ALCALA NP-C [Primary Care Provider] - 3-5 Days CAMPOS CARRANZA MD [Staff Physician] - 7 Days (Follow up in our [place] office with Dr. Carranza on 10/23/2018 @ 1:30PM. ) Prescriptions: Prasugrel [Effient] 10 mg PO QDAY #30 tablet
== END 2018-10-07 18:25 | disposition home or self-care (01) ==
LOC: ED 06:00 → 4A 09:58
PROVIDERS: ADMIT Internal Medicine; ATTEND Internal Medicine
DX: R06.00 Dyspnea, unspecified (principal); R79.89 Other specified abnormal findings of blood chemistry; I25.10 Atherosclerotic heart disease of native coronary artery without angina pectoris; E11.65 Type 2 diabetes mellitus with hyperglycemia; E87.2 Acidosis; I10 Essential (primary) hypertension; E78.5 Hyperlipidemia, unspecified; G47.30 Sleep apnea, unspecified; K21.9 Gastro-esophageal reflux disease without esophagitis; Z95.1 Presence of aortocoronary bypass graft; Z79.899 Other long term (current) drug therapy; Z95.5 Presence of coronary angioplasty implant and graft
CPT/HCPCS: 36415; 71045; 80048; 80061; 82962; 84484; 85025; 85379; 93005; 93010; 96361; 96372; 96374; 99284; A9270; G0378; J7030; J1815